=== PATIENT | female | born 1980 | race Caucasian/White ===

== ENCOUNTER 2021-11-09 08:54 | Emergency (ER) | payer MEDICAID ==
[~2021-11-09] VITALS: Ht 177.8 cm; Wt 65.8 kg
[2021-11-09 08:57] VITALS: BP_SYST 123
--- NOTE | 2021-11-09 09:00 | NUR ---
Patient triaged and placed in waiting room. VSS and patient appears in no acute distress at this time. Accompanied by FRIEND, awaiting available bed, and MD notified of need for MSE.
--- NOTE | 2021-11-09 11:54 | NUR ---
BROUGHT BACK TO BED #6 AND REPORT GIVEN TO ALONSO
--- NOTE | 2021-11-09 12:00 | NUR ---
PT WALKED IN WITH PT REPORTS 20 MIN PRIOR TO ARRIVAL BECAME SOB, SHAKING, SWEATING WITH CHEST TIGHTNESS 6/10, NOW RESOLVED. REPORTS FAMILY HX OF CARDIAC PROBLEMS, STATES SHE FEELS VERY ANXIOUS. PT IS AMBAULTORY, AAOX4, VSS
--- NOTE | 2021-11-09 12:28 | NUR ---
Accucheck done and results were 96.
--- NOTE | 2021-11-09 12:31 | NUR ---
MIQUEL Blanton at bedside examining patient.
[2021-11-09 12:45] VITALS: BP_SYST 123
--- NOTE | 2021-11-09 12:46 | NUR ---
Patient does not wish to proceed with medical care recommended by Dr. Schrader. Patient given information related to possible complications, up to and including , which could occur as a result of leaving hospital at this time. Patient verbalizes understanding of risks involved leaving against medical advice. Patient has signed AMA form.
== END 2021-11-09 12:46 | disposition left against medical advice (07) ==
LOC: SED 08:54
DX: F41.9 Anxiety disorder, unspecified (principal); R00.2 Palpitations; R42 Dizziness and giddiness; Z91.018 Allergy to other foods; Z79.899 Other long term (current) drug therapy
CPT/HCPCS: 82962; 93005; 99283